=== PATIENT | female | born 1960 | race Two or more races ===

== ENCOUNTER → 2016-11-27 | Outpatient (CLI) | payer OTHER ==
[~2016-11-27] MED LIST: ALEVE220 M1 PO; ATIVAN 0.5MG0.5 MG PO; FISH OIL + D31 EACH PO; OMEPRAZOLE40 MG PO; PROZAC20 MG PO; THERAGRAN-M1 TAB PO
== END | disposition disaster alternative care site (69) ==
LOC: GOPD 11-26 09:30 → GPOC 11-26 09:30 → GOPD 11-26 10:00
PROC: 3E0S33Z Introduction of Anti-inflammatory into Epidural Space, Percutaneous Approach (ICD-10-PCS; principal; 2016-11-27)
PROC: 3E0S3BZ Introduction of Anesthetic Agent into Epidural Space, Percutaneous Approach (ICD-10-PCS; 2016-11-27)
DX: M54.12 Radiculopathy, cervical region (principal); M47.812 Spondylosis without myelopathy or radiculopathy, cervical region
CPT/HCPCS: J1040